=== PATIENT | male | born 1995 | race Caucasian/White ===

== ENCOUNTER 2017-09-15 21:09 | Emergency (ER) | payer OTHER ==
[~2017-09-15] VITALS: Ht 177.8 cm; Wt 81.7 kg
[2017-09-15 21:30] LABS: URINE BILIRUBIN NEGATIVE (Negative); URINE BLOOD 3+ (Negative); URINE COLOR RED; URINE GLUCOSE-RANDOM* NEGATIVE (Negative); URINE KETONES NEGATIVE (Negative); URINE PROTEIN (DIPSTICK) NEGATIVE (Negative); URINE SPECIFIC GRAVITY <= 1.005 (1.003-1.035); URINE UROBILINOGEN 0.2 E.U./dl (0.2-1.0)
[2017-09-15 21:35] LABS: URINE LEUKOCYTES-REFLEX TRACE (Negative)
[2017-09-15 21:44] LABS: SQUAMOUS None Seen /LPF (0-3)
[2017-09-15 21:45] LABS: CASTS None Seen /LPF (None Seen); CRYSTALS None Seen /LPF (None Seen); URINE RBC >20 Many /HPF (0-2); URINE WBC-REFLEX None Seen /HPF (0-5)
[2017-09-15 21:46] LABS: ABSOLUTE NEUTROPHILS 4.9 thou/uL (1.4-8.2); BASOPHILS 0.4 % (0.0-2.0); EOSINOPHILS 2.3 % (0.0-3.0); HEMATOCRIT 42.8 % (42.0-52.0); HEMOGLOBIN 14.2 gm/dL (14.0-18.0); LYMPHOCYTES 30.1 % (24.0-44.0); MCH 29.2 pg (26.0-34.0); MCHC 33.2 g/dL (28.0-37.0); MCV 88.1 fL (80.0-100.0); MONOCYTES 7.3 % (1.0-8.0); PLATELET COUNT 195 thou/uL (150-400); POLYS 59.9 % (36.0-66.0); RBC 4.86 mil/uL (4.50-6.00); RDW 12.7 % (10.5-14.5); WBC 8.2 thou/uL (4.0-11.0)
[2017-09-15 21:48] LABS: MANUAL DIFF NO
[2017-09-15 22:06] LABS: CREATININE 1.1 mg/dL (0.7-1.3); POTASSIUM 4.2 mmol/L (3.5-5.1)
[2017-09-15 22:08] LABS: APTT 30.5 Seconds (24.5-32.8)
[2017-09-15] MEDS ORDERED: PYRIDIUM200 MG PO (22:38)
[2017-09-15 22:59] VITALS: BP 116/71
== END 2017-09-15 23:01 | disposition home or self-care (01) ==
LOC: ER 21:09
PROVIDERS: Emergency Medicine
DX: R31.0 Gross hematuria (principal)

== ENCOUNTER 2019-08-04 01:09 | Inpatient (IN) | payer OTHER ==
[~2019-08-04] VITALS: Ht 182.9 cm; Wt 104.3 kg
[2019-08-04] VITALS (8 sets, daily range): BP systolic 103–181; BP diastolic 44–97
[~2019-08-04 01:09] MED LIST: PYRIDIUM200 MG PO
[2019-08-04] MEDS ORDERED: IBU800 MG PO (01:16)
[2019-08-04 01:41] LABS: ABSOLUTE NEUTROPHILS 7.3 thou/uL (1.4-8.2); BASOPHILS 0.3 % (0.0-2.0); EOSINOPHILS 0.9 % (0.0-3.0); HEMATOCRIT 40.5 % (42.0-52.0); HEMOGLOBIN 13.4 gm/dL (14.0-18.0); LYMPHOCYTES 20.7 % (24.0-44.0); MCH 29.7 pg (26.0-34.0); MCV 90.1 fL (80.0-100.0); MONOCYTES 10.3 % (1.0-8.0); PLATELET COUNT 219 thou/uL (150-400); POLYS 67.8 % (36.0-66.0); RDW 12.8 % (10.5-14.5); WBC 10.7 thou/uL (4.0-11.0)
[2019-08-04 01:44] LABS: CALCIUM 8.8 mg/dL (8.5-10.1); POTASSIUM 3.5 mmol/L (3.5-5.1)
[2019-08-04 01:50] LABS: ALBUMIN 4.4 g/dL (3.4-5.0); TOTAL BILIRUBIN 0.4 mg/dL (<0.1-1.0); TOTAL PROTEIN 7.6 g/dL (6.4-8.2)
[2019-08-04 02:55] LABS: APTT 28.9 Seconds (24.5-32.8); PROTIME 10.2 Seconds (9.3-11.4)
--- NOTE | 2019-08-04 05:47 | NUR ---
PT ARRIVED ON THE UNIT THIS MORNING @[address] OP OF [address] DENG. HAD A RT LEG FASCIOTOMY DONE. STATED PAIN OF 8. CALLED PHARMACY TO VERIFY POST OP MEDS. MOM AT BEDSIDE. DRESSING INTACT ON RT LEG. FALL PREC IN PLACE, PT ORIENTED TO ROOM. WILL CONT WITH POC TILL EOS.
--- NOTE | 2019-08-04 18:56 | NUR ---
ASSUMED CARE OF PT AT 0700. PT WAS POST UP FROM FASCIA SX OF THE R LOWER LEG. PT IS ON BEDREST. PAIN IS BEING TOLERATED BY PAIN MEDICATIONS. TOLERATED MEALS FINE. WALKED WITH PT AND TOLERATED WELL. URINAL IN PLACE. FALL PRECAUTIONS IN PLACE. BED IN THE LOWEST POSITION.CALL LIGHT WITHIN REACH. WILL CONTINUE TO MONITOR THE PT.
--- NOTE | 2019-08-05 00:31 | NUR ---
ASSUMED CARE OF PT @1900 PT ASSESSED AT START OF SHIFT WITH C/O OF PAIN IN RT LEG. PAIN MEDS GIVEN SEE EMAR. DRESSING AND WOUND VAC INTACT. URINAL AT BEDSIDE. FALL PREC IN PLACE AND WILL CONT WITH POC TILL EOS.
[2019-08-05 04:05] VITALS: BP 91/46
[2019-08-05 05:47] LABS: HEMATOCRIT 35.2 % (42.0-52.0); HEMOGLOBIN 11.7 gm/dL (14.0-18.0)
[2019-08-05 06:07] LABS: ALBUMIN 3.1 g/dL (3.4-5.0); CALCIUM 7.8 mg/dL (8.5-10.1); CREATININE 0.9 mg/dL (0.7-1.3); PHOSPHORUS 3.4 mg/dL (2.5-4.9); POTASSIUM 3.4 mmol/L (3.5-5.1)
[2019-08-05 07:05] VITALS: BP 92/49
[2019-08-05 15:20] VITALS: BP 134/68
--- NOTE | 2019-08-05 15:24 | NUR ---
ASSUMED CARE OF PT AT 0700. PT UP AD LORI FOR BOWEL MOVEMENT ON THE TOILET. FALL PRECAUTONS IN PLACE. DRESSING ON THE R LEG IS CLEAN, DRY AND INTACT. PAIN IS BEING CONTROLLED BY PAIN MEDICATION. LEG IS ELEVATED. NEURO ASSESSMENTS OF R LEG AND TOES ARE NORMAL. BED IN LOWEST POSITION AND CALL LIGHT IN REACH. WILL CONTINUE TO MONITOR THE PT.
[2019-08-05 19:22] VITALS: BP 96/52
[2019-08-06 06:55] VITALS: BP 103/44
--- NOTE | 2019-08-06 08:01 | NUR ---
PT LYING IN BED. VOIDING PER URINAL. PERCOCET PROVIDING PAIN RELIEF. PLAN FOR I&D RIGHT LEG TODAY. RESTING COMFORTABLY. NO NEEDS VOICED. CALL LIGHT WITHIN REACH. WILL CONTINUE TO PROVIDE FREQUENT OBSERVATION.
--- NOTE | 2019-08-06 11:05 | NUR ---
PATIENT LEFT AT 1040 FOR PRE-OP. NO PAIN OR RESP DISTRESS AT TRANSFER.PT'S GIRLFRIEND WITH HIM.
[2019-08-06] MEDS ORDERED: PERCOCET PO (13:26)
[2019-08-06 15:57] VITALS: BP 110/61
[2019-08-06 18:01] VITALS: BP 110/61
--- NOTE | 2019-08-06 18:19 | NUR ---
DISCHARGE ORDERS GONE OVER WITH PATIENT SIGNED AND COPY IN CHART. IV ACSESS DCD. PATIENTS FAMILY GIVEN RX'S EARLER. ALL BELONGINGS PACKED AND SENT WITH PATIENT. PT ALERT XS 4 NO PAIN OR RESP DISTRESS, ATE DINNER NO N&V PT AHS VOIDED.
[2019-08-06 18:39] VITALS: BP 110/61
--- NOTE | 2019-08-13 09:43 | O ---
[facility] [place] [address] OPERATIVE REPORT Name: KARANANGY MAX Room #: 447-P [facility] IN M.R.#: [id number] Admission: 08/04/19 Attend Phys: Nancy Aceves Discharge: 08/06/19 Date of : 89 Report #: [id number] THIS REPORT FOR: //name// CC: Nancy Gilman DATE OF SERVICE: 08/04/2019 PREOPERATIVE DIAGNOSIS: Right leg lateral compartment syndrome. POSTOPERATIVE DIAGNOSIS: Right leg lateral compartment syndrome. PROCEDURE: Right lower leg fasciotomy of 2 compartments, specifically anterior and lateral compartment. SURGEON: Serafin Simms MD ANESTHESIA: General. TOURNIQUET TIME: 8 minutes. COMPLICATIONS: None. SPECIMENS: None. CONDITION UPON LEAVING THE OPERATING ROOM: Stable. INDICATIONS FOR PROCEDURE: The patient is a 24-year-old gentleman who around 4:00 on 08/03/2019 was working out, rolled his ankle and fell, hitting his right leg. He has had increasing pain since that time; however, went to work tonight, but had to leave early secondary to the pain. He took 800 mg of ibuprofen and Tylenol with no relief. He came to the Emergency Room, was evaluated by the ER physician and found to have findings of compartment syndrome. Specifically, his lateral compartment measured 115 mmHg with the Burak monitor. After evaluation with me and discussion with his family regarding the need for fasciotomy, they elected for emergent fasciotomy. DESCRIPTION OF PROCEDURE: Risks, benefits, alternatives, complications were discussed in detail with the patient including but not limited to risk of anesthesia, risk of damage to nerves, arteries, blood vessels, risk for loss of muscle tissue secondary to compartment syndrome and need for reoperation. Informed consent was obtained from the patient. The right leg was appropriately marked in the preoperative holding area. IV Ancef was given for preoperative antibiotics. He was brought to the operating room and placed in supine position on operating room table. LMA anesthesia was induced without complication. Tourniquet was placed on the right thigh. Right lower extremity was prepped and [address] [address] OPERATIVE REPORT Name: ANGY RUSSO Room #: 447-P [facility] IN M.R.#: [id number] Admission: 08/04/19 Attend Phys: Nancy Aceves Discharge: 08/06/19 Date of : 97 Report #: [id number] draped in normal sterile fashion. Timeout was performed properly identifying the patient and procedure as well as the instrumentation. All in the operating room were in agreement. A skin incision was marked mcfp between the fibula and the tibia laterally in line with the fibula was made. This incision was extended about the mid portion of the lower leg. Incision was made with 10 blade through the skin and sharply down to the fascia. Anterior and posterior flaps were developed. The fascia was identified. The intermuscular septum was easily visualized. A transverse incision across the intermuscular septum was made with a 15 blade and the intermuscular septum was palpated with a hemostat to verify that we were in the correct position. A curved Brown scissors was then used to release the anterior fascia distally and proximally. The posterior fascia was also released with Brown scissors proximally and distally. The anterior musculature appeared normal and viable and reactive to Bovie cautery. The lateral compartment musculature appeared contused; however, there was no obvious hematoma. There was bleeding within the muscular tissue itself. The muscle was sluggishly reactive to Bovie cautery. The wound was then thoroughly irrigated with normal saline and a wound VAC was placed with the plan to return to the operating room in 2 days for wound closure. The patient tolerated this procedure well and went to recovery room under care of anesthesia postoperatively. <ELECTRONICALLY SIGNED> By: Serafin Simms MD 08/13/19 0943 0415 [id number] Serafin Simms MD /nt
--- NOTE | 2019-08-13 09:43 | O ---
[facility] [place] [address] OPERATIVE REPORT Name: ANGY RUSSO Room #: 447-P [facility] IN M.R.#: [id number] Admission: 08/04/19 Attend Phys: Nancy Aceves Discharge: 08/06/19 Date of : 89 Report #: [id number] THIS REPORT FOR: //name// CC: Nancy Gilman DATE OF SERVICE: 08/06/2019 PREOPERATIVE DIAGNOSIS: Status post right leg fasciotomy. POSTOPERATIVE DIAGNOSIS: Status post right leg fasciotomy. PROCEDURE: Irrigation and debridement, right lateral leg fasciotomy with primary skin closure. SURGEON: Serafin Simms MD. [employer] MACHINE OPERATOR: Lianna Gomez PA-C. ANESTHESIA: General. ESTIMATED BLOOD LOSS: Less than 10 mL. FINDINGS: Reactive muscle to Bovie cautery of the lateral leg compartment. CONDITION UPON LEAVING THE OPERATING ROOM: Stable. INDICATIONS FOR PROCEDURE: The patient is a 24-year-old gentleman who had a right lower leg compartment syndrome 2 days ago. He was treated with a fasciotomy and placement of wound VAC. He is 2 days postop and in need of debridement and irrigation of his leg with possible wound closure. DESCRIPTION OF PROCEDURE: Risks, benefits, alternatives, complications were discussed in detail with the patient including but not limited to risk of anesthesia, risk of damage to nerves, arteries, blood vessels, risk for continued need for wound VAC and further debridement. Informed consent was obtained from the patient. The right leg was appropriately marked in the preoperative holding area. IV Ancef was given for preoperative antibiotics. He was brought to the operating room and placed in supine position on operating room table. LMA anesthesia was induced without complication. No tourniquet was used. Right lower extremity was prepped and draped in normal sterile fashion. Timeout was performed properly identifying the patient and procedure as well as instrumentation. All in the operating room were in agreement. Previous fasciotomy wound was then inspected and there appeared to be good viable muscle tissue to visualization. The lateral compartment musculature was reactive to Bovie stimulation. There was no obvious necrotic muscle. The wound was [address] [address] OPERATIVE REPORT Name: ANGY RUSSO Room #: 447-P [facility] IN M.R.#: [id number] Admission: 08/04/19 Attend Phys: Nancy Aceves Discharge: 08/06/19 Date of : 97 Report #: [id number] thoroughly irrigated with normal saline and the skin was closed with 2-0 Vicryl and 3-0 nylon. Soft dressing of Adaptic, 4 x 4, Webril, Fede wrap were applied. The patient tolerated this procedure well and went to recovery room under care of anesthesia postoperatively. <ELECTRONICALLY SIGNED> By: Serafin Simms MD 08/13/19 0943 1332 1342 Serafin Simms MD /nt
--- NOTE | 2019-08-13 09:43 | HC ---
[facility] [place] [address] CONSULTATION Name: ANGY RUSSO MANSOOR Room #: 447-P [facility] IN M.R.#: [id number] Admission: 08/04/19 Attend Phys: Nancy Aceves Discharge: 08/06/19 Date of : 97 Report #: [id number] THIS REPORT FOR: //name// CC: Nancy Gilman DATE OF SERVICE: 08/04/2019 REASON FOR CONSULTATION: Right leg compartment syndrome. HISTORY OF PRESENT ILLNESS: The patient is a 24-year-old gentleman who about 4:00 p.m. on 08/03/2019 was running and rolled his right ankle. He has had progressive worsening of lateral pain in his leg with paresthesias going into the dorsum of his foot since that time. He feels like his foot is numb and he is unable to move his toes. He took 800 mg of ibuprofen at the time of injury and Tylenol approximately an hour and a half prior to his arrival in the Emergency Room. He has had significant pain on that side and was unable to go to sleep tonight, which brought him into the Emergency Room. Denies any previous injury to this leg. PAST MEDICAL HISTORY: Negative. PAST SURGICAL HISTORY: Appendectomy. ALLERGIES: INCLUDE PENICILLIN. SOCIAL HISTORY: He does not smoke cigarettes. He does use recreational marijuana. Occasional alcohol use. Does not use any other illicit drugs. PHYSICAL EXAMINATION: GENERAL: This is a well-developed, well-nourished male, in moderate amount of pain. He is alert and oriented, pleasant, cooperative with exam. EXTREMITIES: Examination of the right leg shows him to have significant swelling in his lateral compartment of his lower leg and the anterior compartment and posterior compartments are soft to touch. He has significant pain with inversion of the foot. His lateral compartment is extremely taut. He has decreased sensation in the dorsum of his foot compared to the left foot. He does have full sensation to light touch in the plantar surface of his foot. He has a 2+ posterior tibialis pulse and normal capillary refill of his toes. X-RAY EXAMINATION: AP and lateral of the right leg shows to have an intact tibia and fibula with no fractures. LABORATORY VALUES: Show him to have a white cell count of 10.7. His chemistries are normal other than an elevated glucose at 120 and AST of 71 and a creatine kinase of [address]2. [address] [address] CONSULTATION Name: ANGY RUSSO Room #: 447-P [facility] IN M.R.#: [id number] Admission: 08/04/19 Attend Phys: Nancy Aceves Discharge: 08/06/19 Date of : 89 Report #: [id number] ASSESSMENT: Right leg lateral compartment syndrome. PLAN: Discussed this case with Dr. Real, the Emergency Room physician and Dr. Real reports that he did the [employer] bedside monitor on his compartments and his lateral compartment measured 115 with a repeat measurement of 117 and the anterior compartment measured 23. Given his signs of acute compartment syndrome including pain with passive stretch of his lateral compartment as well as his objective finding of a pressure of 115 in the compartment, I feel that we need to emergently go to the operating room for fasciotomy of his lateral compartment. I discussed with him and his parents and brother the findings and the need for emergent treatment as well as the expected outcomes afterwards. He is understanding and wished to proceed. Thank you for allowing us to participate in the care of this patient. <ELECTRONICALLY SIGNED> By: Serafin Simms MD 08/13/19 0943 0238 [id number] Serafin Simms MD /nt
== END 2019-08-06 18:58 | disposition home or self-care (01) | DRG 982 ==
LOC: ER 01:09 → EROBS 02:40 → 4S 02:40
PROVIDERS: Emergency Medicine; Nurse Practitioner Family; Orthopaedic Surgery; ADMIT Hospitalist
PROC: 0KNS0ZZ Release Right Lower Leg Muscle, Open Approach (ICD-10-PCS; principal; 2019-08-04)
PROC: 2W1QX6Z Compression of Right Lower Leg using Pressure Dressing (ICD-10-PCS; 2019-08-06)
DX: T79.A21A Traumatic compartment syndrome of right lower extremity, initial encounter (principal); M62.82 Rhabdomyolysis; X58.XXXA Exposure to other specified factors, initial encounter; Z88.0 Allergy status to penicillin; Z90.49 Acquired absence of other specified parts of digestive tract; Z79.1 Long term (current) use of non-steroidal anti-inflammatories (NSAID); Z86.718 Personal history of other venous thrombosis and embolism
CPT/HCPCS: 10195; 50010; 50101; 50366; 50386; 50643; 56527; 56528; 57091; 57103; 57179; 62110; 62900; 70005